=== PATIENT | male | born 1960 | race Caucasian/White ===

== ENCOUNTER 2019-03-18 05:46 | Day surgery (SDC) | payer OTHER ==
[2019-03-18] MEDS ORDERED: LIDOCAINE 2% (SDV) 5 ML INJ (07:22)
[2019-03-18] MEDS ORDERED: ROCURONIUM 50 MG INJ (07:22)
[2019-03-18] MEDS ORDERED: SUCCINYLCHOLINE CHLORIDE 100 MG/5 ML SYG IV (07:22)
[2019-03-18] MEDS ORDERED: PROPOFOL 20 ML (07:22)
[2019-03-18] MEDS ORDERED: FENTAnyl 50 MCG/ML VIAL (07:23)
[2019-03-18] MEDS ORDERED: MIDAZOLAM 1 MG/ML 2 ML INJ (07:23)
[2019-03-18] MEDS: SOD CHLORIDE 0.9% 1,000 ML IV ×2 (07:31→09:02)
[2019-03-18] MEDS ORDERED: ROPIVACAINE 0.5 % 30 ML VIAL (07:43)
[2019-03-18] MEDS ORDERED: ONDANSETRON 4 MG INJ (07:58)
[2019-03-18] MEDS ORDERED: FAMOTIDINE 20 MG INJ (07:58)
[2019-03-18] MEDS ORDERED: SUGAMMADEX SODIUM 200 MG/2 ML VIAL IV ×3 (08:21→08:26)
[2019-03-18] MEDS: BUPIVACAINE 0.25% (MPF) 30 ML INJ (08:22)
[2019-03-18] MEDS ORDERED: KETOROLAC 30 MG INJ (08:22)
[2019-03-18] MEDS ORDERED: morphine 2 MG INJ (08:59)
[2019-03-18] MEDS ORDERED: ONDANSETRON 4 MG INJ IV (09:00)
[2019-03-18] MEDS: morphine 2 MG INJ IV (09:26)
[2019-03-18] MEDS: OXYCODONE/ACETAMINOPHEN (5/325) TAB PO ×2 (09:30→10:17)
== END 2019-03-18 10:49 | disposition home or self-care (01) ==
LOC: SDS 05:46
DX: K42.9 Umbilical hernia without obstruction or gangrene (principal); E11.9 Type 2 diabetes mellitus without complications; E66.9 Obesity, unspecified
CPT/HCPCS: 49587; 82962; 88302